=== PATIENT | female | born 1975 | race Caucasian/White ===

== ENCOUNTER → 2016-06-04 | Outpatient (CLI) | payer OTHER ==
--- NOTE | 2016-06-05 09:02 | MM ---
Reason for exam: screening (asymptomatic). Last mammogram was performed 1 year and 2 months ago. History: Taking estrogen. Physical Findings: A clinical breast exam by your physician is recommended on an annual basis and results should be correlated with mammographic findings. MG Screening Mammo w CAD Bilateral CC and MLO view(s) were taken. Prior study comparison: April 01, 2015, bilateral MG screening mammo w CAD. November 17, 2006, CAD bilateral diagnostic mammogram. There are scattered fibroglandular densities. No significant changes when compared with prior studies. ASSESSMENT: Benign, BI-RAD 2 RECOMMENDATION: Routine screening mammogram of both breasts in 1 year.
== END ==
LOC: RADMAMWWP 09:52
PROVIDERS: ATTEND Internal Medicine
DX: Z12.31 Encounter for screening mammogram for malignant neoplasm of breast (principal)

== ENCOUNTER → 2017-10-15 | Outpatient (CLI) | payer BC ==
[2017-10-15 11:37] VITALS: BP 107/72; PULSE 62; BMI 24.8
--- NOTE | 2017-10-15 12:13 | P.HPOB ---
History of Present Illness H&P Date: 10/15/17 Chief Complaint: The patient is here for her routine gynecologic exam and mammogram. This is a 42-year-old G3 PIII with an LMP of 2006. She is status post VERONIKA BSO for endometriosis. The patient has been on oral ERT for several years. She has had significant hot flashes which are improved with ERT and fluoxetine. She tried to decrease her Estrace to 1 mg from 2 mg but had severe hot flashes. She is without gynecologic complaints and states she is doing very well with ERT and fluoxetine. Review of Systems The patient has lost 8 pounds over the last year with regular exercise. She denies respiratory or G.I. problems. Cardiac: she feels occasional palpitations which are not very bothersome. She did have a workup for this already. Past Medical History Past Medical History: GERD/Reflux Additional Past Medical History / Comment(s): hx. sarcoidosis, seasonal allergies. 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 She has had 3 sections. History of Any Multi-Drug Resistant Organisms: None Reported Past Surgical History: Appendectomy, Bladder Surgery, Section (3), Cholecystectomy, Hysterectomy (VERONIKA BS oh with abdominoplasty in 2006. Complicated with bowel and bladder injuries.), Tonsillectomy Additional Past Surgical History / Comment(s): mediastinoscopy, bladder & bowel repair surg. due to complications from hyst. Past Anesthesia/Blood Transfusion Reactions: Motion Sickness, Postoperative Nausea & Vomiting (PONV) Past Psychological History: No Psychological Hx Reported Smoking Status: Never smoker Past Alcohol Use History: Occasional (One per month) Past Drug Use History: None Reported Additional History: She has been since 1999. 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 - Past Family History Father Family Medical History: Diabetes Mellitus, Hypertension Additional Family Medical History / Comment(s): Father was an alcoholic. Mother Family Medical History: Cancer (Melanoma) Medications and Allergies Home Medications Medication Instructions Recorded Confirmed Type Cetirizine HCl [Zyrtec] 10 mg PO DAILY 09/14/14 11/09/14 History Estradiol [Estrace] 2 mg PO DAILY 09/14/14 11/08/14 History FLUoxetine HCL [PROzac] 20 mg PO DAILY 09/14/14 11/08/14 History Fish Oil/Dha/Epa [Fish Oil 1,200 1 each PO DAILY 09/14/14 11/08/14 History mg Fish Oil] Fluticasone Propionate [Flonase 1 spray EA NOSTRIL DAILY 09/14/14 11/09/14 History Allergy Relief] L.acid/L.casei/B.bif/B.candida/Fos 1 each PO DAILY 09/14/14 11/09/14 History [Probiotic Blend Capsule] Omeprazole [PriLOSEC] 20 mg PO AC-BRKFST 09/14/14 11/09/14 History Hydrocodone/Acetaminophen [[place] 1 each PO Q4HR PRN #30 tab 11/09/14 Rx 7.5-325] Gabapentin [Neurontin] mg PO DAILY 10/15/17 History Allergies Allergy/AdvReac Type Severity Reaction Status Date / Time Latex, Natural Rubber Allergy Rash/Hives Verified 10/15/17 11:48 erythromycin base AdvReac Nausea & Verified 10/15/17 11:48 Vomiting meperidine HCl [From Demerol] AdvReac Nausea & Verified 10/15/17 11:48 Vomiting Exam - Vital Signs Vital signs: Vital Signs Pulse BP 10/15/17 11:28 62 107/72 Intake and Output 10/14/17 10/15/17 10/15/17 22:59 06:59 14:59 Other: Weight 69.853 kg Height 5'6", BMI 24.9. This is a well-developed well-nourished white female who is alert and oriented times 3 in no acute distress. HEENT: Within normal limits. NECK: Supple without mass or thyromegaly. CHEST AND LUNGS: Clear to auscultation. HEART: Regular rate and rhythm. BREASTS: Are without mass or discharge. AXILLARY EXAM: Negative for adenopathy. BACK: Negative for CVA tenderness. ABDOMEN: Soft, nontender, without palpable masses. PELVIC EXAM: External genitalia appears normal without significant atrophy. Vagina appears normal without significant atrophy. There is no evidence of prolapse. Bimanual examination is negative for mass or tenderness. RECTAL EXAM: negative for mass or tenderness and is negative for occult blood. EXTREMITIES: Nontender. IMPRESSION: 1. 42-year-old surgically menopausal female status post VERONIKA BSO on ERT and SSRI medications for vasomotor symptoms. 2. Normal gynecologic exam PLAN: 1. Pap smears have been discontinued. 2. Self breast awareness was discussed. 3. Screening mammogram will be done today. 4. Osteoporosis prevention was discussed. 5. We have had a lot of discussion regarding ERT. She understands she may be at a greater risk for blood clots. She states she is doing very well with ERT and SSRI medications. These will be kept the same at this time. In approximately 2 years we will consider trial to wean down the ERT. I have recommended that she eventually come off of the ERT. She will continue to get the prescriptions for Estrace through Dr. Uriostegui. 6. She will return in one year.
--- NOTE | 2017-10-16 09:10 | MM ---
Reason for exam: screening (asymptomatic). Last mammogram was performed 1 year and 4 months ago. History: Patient is postmenopausal. Taking estrogen. Physical Findings: A clinical breast exam by your physician is recommended on an annual basis and results should be correlated with mammographic findings. MG Screening Mammo w CAD Bilateral CC and MLO view(s) were taken. Prior study comparison: June 04, 2016, bilateral MG screening mammo w CAD. April 01, 2015, bilateral MG screening mammo w CAD. The breast tissue is heterogeneously dense. This may lower the sensitivity of mammography. Finding: There are typically benign calcifications in both breasts. No suspicious abnormality. No significant changes in finding since June 04, 2016 and April 01, 2015. ASSESSMENT: Benign, BI-RAD 2 RECOMMENDATION: Routine screening mammogram of both breasts in 1 year.
== END ==
LOC: WWCWWP 10:12
PROVIDERS: ATTEND Obstetrics & Gynecology
DX: Z12.31 Encounter for screening mammogram for malignant neoplasm of breast (principal); R92.1 Mammographic calcification found on diagnostic imaging of breast
CPT/HCPCS: 77067

== ENCOUNTER → 2018-02-12 | Outpatient (CLI) | payer OTHER ==
--- NOTE | 2018-02-12 14:15 | MR ---
EXAMINATION TYPE: MR brain/cspine wo DATE OF EXAM: 02/12/2018 2:03 PM COMPARISON: NONE HISTORY: Headache / Cervicalgia Multiplanar and multispin-echo imaging of the brain was performed . The ventricles, basal cisterns and sulci overlying the cerebral convexities are within normal limits. There is no evidence for midline shift or mass effect. Acute intracranial hemorrhage or extra-axial collection is not evident. Noted are 4 sub-3 mm foci of increased signal within the subcortical white matter of the right cerebr al hemisphere in the parietal and frontal regions. On the left there is a 4.5 mm focus of increased s ignal within the posterior left parietal subcortical region. One or 2 additional foci are seen. The f indings are nonspecific and can be seen in patients with chronic small vessel ischemic change, vascul itis, chronic migraine headaches as well as Lyme's disease to name a few. No acute edema is identified. The paranasal sinuses and mastoid air cells are well-aerated. IMPRESSION: Nonspecific white matter changes as discussed above. EXAMINATION TYPE: MR brain/cspine wo DATE OF EXAM: 02/12/2018 2:03 PM COMPARISON: NONE HISTORY: Headache / Cervicalgia Multiplanar MultiSpin echo imaging of the cervical spine was performed. Comparison: none C2-C3: No evidence for degenerative disc disease. No disc bulge/herniation or protrusion. No Canal stenosis. Foramina are patent bilaterally. C3-C4: No evidence for degenerative disc disease. No disc bulge/herniation or protrusion. No Canal stenosis. Foramina are patent bilaterally. C4-C5: Mild disc desiccation. Posterocentral disc bulge. Mild effacement ventral thecal sac. No evide nce of herniation protrusion or central stenosis. Visualized foramina are patent. C5-C6: No evidence for degenerative disc disease. No disc bulge/herniation or protrusion. No Canal stenosis. Foramina are patent bilaterally. C6-C7: No evidence for degenerative disc disease. No disc bulge/herniation or protrusion. No Canal stenosis. Foramina are patent bilaterally. C7-T1: No evidence for degenerative disc disease. No disc bulge/herniation or protrusion. No Canal stenosis. Foramina are patent bilaterally. Cervical segments are intact. There is normal alignment. Cervical spinal cord is of normal signal. Craniovertebral junction relationships are within normal limits. IMPRESSION: 1. Mild disc desiccation and bulging at C4-5.
== END ==
LOC: RADMRIMAIN 13:21
PROVIDERS: ATTEND Psychiatry & Neurology Pain Medicine
DX: M50.221 Other cervical disc displacement at C4-C5 level (principal); R90.89 Other abnormal findings on diagnostic imaging of central nervous system
CPT/HCPCS: 70551; 72141

== ENCOUNTER 2019-07-20 14:21 | Emergency (ER) | payer OTHER ==
[2019-07-20] MEDS ORDERED: SODIUM CHLORIDE 0.9% 1,000 ML IV STA (14:51)
[2019-07-20] MEDS ORDERED: SODIUM CHLORIDE 0.9% 500 ML 500 ML IV STA (14:51)
[2019-07-20] MEDS ORDERED: ONDANSETRON 4 MG/2 ML VIAL IVP STA (14:51)
[2019-07-20] MEDS ORDERED: DIPHENOX-ATROP STARTER PACK 8 TAB BTL PO STA ×2 (14:59→17:03)
[2019-07-20 15:21] LABS: Basophils % (A) 0 %; Eosinophils # (A) 0.1 k/uL (0-0.7); Eosinophils % (A) 1 %; HCT 40.9 % (34.0-46.0); HGB 13.2 gm/dL (11.4-16.0); Lymphocytes # (A) 0.6 k/uL (1.0-4.8); Lymphocytes % (A) 11 %; MCH 27.8 pg (25.0-35.0); MCHC 32.4 g/dL (31.0-37.0); MCV 85.8 fL (80.0-100.0); Mean Platelet Volume 7.4; Monocytes # (A) 0.4 k/uL (0-1.0); Monocytes % (A) 6 %; Neutrophils # (A) 4.5 k/uL (1.3-7.7); Neutrophils % (A) 80 %; Platelet Count 279 k/uL (150-450); RBC 4.76 m/uL (3.80-5.40); RDW 12.5 % (11.5-15.5); WBC 5.7 k/uL (3.8-10.6)
--- NOTE | 2019-07-20 15:24 | ED ---
General Adult HPI - General Chief complaint: Syncope Stated complaint: headache,vomitting Source: patient, RN notes reviewed, old records reviewed Mode of arrival: wheelchair Limitations: no limitations - History of Present Illness Initial comments: This is a 44-year-old female who states she is here because she was vomiting and having diarrhea. Patient states it started 2 days ago just after she got back from a cruise. Patient states her wasn't feeling well and nauseated a little but had no vomiting or diarrhea. Patient denies any fever chills. Patient denies any abdominal pain. Patient states on her way to her doctor's today she got lightheaded and eventually passed out. Patient states she does not feel lightheaded currently but she still is nauseated. Patient denies any chest pain palpitations or difficulty breathing. Patient denies any back pain. Patient denies any dysuria hematuria urinary frequency. - Related Data Home Medications Medication Instructions Recorded Confirmed Cetirizine HCl [Zyrtec] 10 mg PO DAILY 09/14/14 10/15/17 Estradiol [Estrace] 2 mg PO DAILY 09/14/14 10/15/17 FLUoxetine HCL [PROzac] 20 mg PO DAILY 09/14/14 10/15/17 Fish Oil/Dha/Epa [Fish Oil 1,200 1 each PO DAILY 09/14/14 10/15/17 mg Fish Oil] Fluticasone Propionate [Flonase 1 spray EA NOSTRIL DAILY 09/14/14 10/15/17 Allergy Relief] L.acid/L.casei/B.bif/B.candida/Fos 1 each PO DAILY 09/14/14 10/15/17 [Probiotic Blend Capsule] Omeprazole [PriLOSEC] 20 mg PO AC-BRKFST 09/14/14 10/15/17 Gabapentin [Neurontin] mg PO DAILY 10/15/17 Previous Rx's Medication Instructions Recorded Hydrocodone/Acetaminophen [[place] 1 each PO Q4HR PRN #30 tab 11/09/14 7.5-325] Allergies Allergy/AdvReac Type Severity Reaction Status Date / Time Latex, Natural Rubber Allergy Rash/Hives Verified 07/20/19 14:37 erythromycin base AdvReac Nausea & Verified 07/20/19 14:37 Vomiting meperidine HCl [From Demerol] AdvReac Nausea & Verified 07/20/19 14:37 Vomiting Review of Systems ROS Statement: Those systems with pertinent positive or pertinent negative responses have been documented in the HPI. ROS Other: All systems not noted in ROS Statement are negative. Past Medical History Past Medical History: GERD/Reflux Additional Past Medical History / Comment(s): hx. sarcoidosis, seasonal allergies. 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 She has had 3 sections. History of Any Multi-Drug Resistant Organisms: None Reported Past Surgical History: Appendectomy, Bladder Surgery, Section, Cholecystectomy, Hysterectomy, Tonsillectomy Additional Past Surgical History / Comment(s): mediastinoscopy, bladder & bowel repair surg. due to complications from hyst. Past Anesthesia/Blood Transfusion Reactions: Motion Sickness, Postoperative Nausea & Vomiting (PONV) Past Psychological History: No Psychological Hx Reported Smoking Status: Never smoker Past Alcohol Use History: Occasional Past Drug Use History: None Reported - Past Family History Father Family Medical History: Diabetes Mellitus, Hypertension Additional Family Medical History / Comment(s): Father was an alcoholic. Mother Family Medical History: Cancer (Melanoma) General Exam - General Exam Comments Initial Comments: GENERAL: Patient is well-developed and well-nourished. Patient is nontoxic and well- hydrated and is in mild distress. ENT: Neck is soft and supple. No significant lymphadenopathy is noted. Oropharynx is clear. Moist mucous membranes. Neck has full range of motion without eliciting any pain. EYES: The sclera were anicteric and conjunctiva were pink and moist. Extraocular movements were intact and pupils were equal round and reactive to light. Eyelids were unremarkable. PULMONARY: Unlabored respirations. Good breath sounds bilaterally. No audible rales rhonchi or wheezing was noted. CARDIOVASCULAR: There is a regular rate and rhythm without any murmurs gallops or rubs. ABDOMEN: Soft and nontender with normal bowel sounds. SKIN: Skin is clear with no lesions or rashes and otherwise unremarkable. NEUROLOGIC: Patient is alert and oriented x3. Cranial nerves II through XII are grossly intact. Motor and sensory are also intact. Normal speech, volume and content. Symmetrical smile. MUSCULOSKELETAL: Normal extremities with adequate strength and full range of motion. No lower extremity swelling or edema. No calf tenderness. LYMPHATICS: No significant lymphadenopathy is noted PSYCHIATRIC: Normal psychiatric evaluation. Limitations: no limitations Course Vital Signs 0207/20/19 07/20/19 14:34 15:23 17:20 Temperature 98.2 F 99 F Pulse Rate 80 73 Respiratory 20 18 18 Rate Blood Pressure 100/71 119/79 Blood Pressure 116/84 [Left Arm Standing] Blood Pressure 113/75 [Right Arm Sitting] O2 Sat by Pulse 98 100 99 Oximetry Medical Decision Making - Lab Data Result diagrams: 07/20/19 14:50 07/20/19 14:50 Lab Results 07/20/19 07/20/19 Range/Units 14:50 14:50 WBC 5.7 (3.8-10.6) k/uL RBC 4.76 (3.80-5.40) m/uL Hgb 13.2 (11.4-16.0) gm/dL Hct 40.9 (34.0-46.0) % MCV 85.8 (80.0-100.0) fL MCH 27.8 (25.0-35.0) pg MCHC 32.4 (31.0-37.0) g/dL RDW 12.5 (11.5-15.5) % Plt Count 279 (150-450) k/uL Neutrophils % 80 % Lymphocytes % 11 % Monocytes % 6 % Eosinophils % 1 % Basophils % 0 % Neutrophils # 4.5 (1.3-7.7) k/uL Lymphocytes # 0.6 L (1.0-4.8) k/uL Monocytes # 0.4 (0-1.0) k/uL Eosinophils # 0.1 (0-0.7) k/uL Basophils # 0.0 (0-0.2) k/uL Sodium 134 L (137-145) mmol/L Potassium 4.2 (3.5-5.1) mmol/L Chloride 102 (98-107) mmol/L Carbon Dioxide 25 (22-30) mmol/L Anion Gap 7 mmol/L BUN 9 (7-17) mg/dL Creatinine 0.64 (0.52-1.04) mg/dL Est GFR (CKD-EPI)AfAm >90 (>60 ml/min/1.73 sqM) Est GFR (CKD-EPI)NonAf >90 (>60 ml/min/1.73 sqM) Glucose 102 H (74-99) mg/dL Calcium 8.8 (8.4-10.2) mg/dL Total Bilirubin 0.2 (0.2-1.3) mg/dL AST 46 H (14-36) U/L ALT 35 H (4-34) U/L Alkaline Phosphatase 66 (38-126) U/L Total Protein 7.0 (6.3-8.2) g/dL Albumin 4.2 (3.5-5.0) g/dL Amylase 49 (30-110) U/L Lipase 63 (23-300) U/L Disposition Clinical Impression: Syncope, Gastritis Disposition: HOME SELF-CARE Instructions (If sedation given, give patient instructions): Syncope (ED), Gastritis (ED) Is patient prescribed a controlled substance at d/c from ED?: No Referrals: Hamida Uriostegui MD [Primary Care Provider] - 1-2 days
[2019-07-20 15:26] VITALS: RESP 18
[2019-07-20] MEDS ORDERED: SODIUM CHLORIDE 0.9% 1,000 ML IV ONE (15:26)
[2019-07-20] MEDS ORDERED: ACETAMINOPHEN ORAL SUSP 160 MG/5 ML CUP PO ONE (15:27)
[2019-07-20] MEDS ORDERED: IBUPROFEN IV 600 MG in SODIUM CHLORIDE 0.9% 250 ML IV STA (15:27)
[2019-07-20 15:31] LABS: ALT 35 U/L (4-34); AST 46 U/L (14-36); African American GFR (CKD) >90 (>60 ml/min/1.73 sqM); Albumin 4.2 g/dL (3.5-5.0); Alkaline Phosphatase 66 U/L (38-126); Amylase 49 U/L (30-110); Anion Gap 7 mmol/L; Blood Urea Nitrogen 9 mg/dL (7-17); Calcium 8.8 mg/dL (8.4-10.2); Carbon Dioxide 25 mmol/L (22-30); Chloride 102 mmol/L (98-107); Glucose 102 mg/dL (74-99); Non-African American GFR(CKD) >90 (>60 ml/min/1.73 sqM); Potassium 4.2 mmol/L (3.5-5.1); Sodium 134 mmol/L (137-145); Total Bilirubin 0.2 mg/dL (0.2-1.3)
[2019-07-20] MEDS ORDERED: ASPIRIN-ACET-CAFF 250-250-65MG 1 EACH TAB PO STA (17:01)
[2019-07-20] MEDS ORDERED: ONDANSETRON 4 MG ODT STARTER PACK 2 TAB BTL PO STA (17:03)
[2019-07-20 17:26] VITALS: BP 119/79; PULSE 73; TEMP 99
== END 2019-07-20 17:20 | disposition home or self-care (01) ==
LOC: EC 14:21
DX: K29.70 Gastritis, unspecified, without bleeding (principal); R55 Syncope and collapse; R51 Headache; R42 Dizziness and giddiness; K21.9 Gastro-esophageal reflux disease without esophagitis; Z79.3 Long term (current) use of hormonal contraceptives; Z79.899 Other long term (current) drug therapy; Z88.1 Allergy status to other antibiotic agents; Z91.040 Latex allergy status; Z88.5 Allergy status to narcotic agent; Z90.49 Acquired absence of other specified parts of digestive tract; Z98.890 Other specified postprocedural states
CPT/HCPCS: 99284; 96374; 96361 ×2; 36415; 80053; 82150; 83690; 85025; J2405; S0119

== ENCOUNTER → 2020-03-16 | Outpatient (CLI) | payer OTHER | END | disposition home or self-care (01) | LOC: LABWHC1 09:01 | PROVIDERS: ATTEND Internal Medicine | DX: R05 Cough (principal) | CPT/HCPCS: U0003; C9803 ==

== ENCOUNTER → 2020-08-16 | Outpatient (CLI) | payer OTHER ==
--- NOTE | 2020-08-16 18:03 | XR ---
EXAMINATION TYPE: XR finger LT DATE OF EXAM: 08/16/2020 COMPARISON: NONE HISTORY: Pain TECHNIQUE: Two views are submitted. FINDINGS: The osseous structures are intact. The joint spaces are preserved and there is no acute fracture or dislocation. Soft tissue edema noted. IMPRESSION: 1. No definite acute fracture or dislocation if symptoms persist, follow-up study in 7 to 10 days wo uld be suggested
== END | disposition home or self-care (01) ==
LOC: RADXRYALE 16:07
PROVIDERS: ATTEND Internal Medicine
DX: M79.645 Pain in left finger(s) (principal)